=== PATIENT | male | born 1960 | race Caucasian/White ===

== ENCOUNTER 2017-10-13 08:01 | Outpatient (RCR) | payer OTHER ==
[~2017-10-13 08:01] MED LIST: FLOMAX 0.40.4 MG/CAP PO; TERBINAFINE250 MG PO
== END 2017-10-20 14:26 | disposition still patient (30) ==
LOC: WSOH 08:01
DX: M25.512 Pain in left shoulder (principal); S80.02XA Contusion of left knee, initial encounter; X50.0XXA Overexertion from strenuous movement or load, initial encounter; Y99.0 Civilian activity done for income or pay
CPT/HCPCS: J3301

== ENCOUNTER 2017-11-28 08:35 | Outpatient (RCR) | payer OTHER | END 2017-12-09 08:00 | disposition home or self-care (01) | LOC: WSPT 08:35 | DX: S80.02XA Contusion of left knee, initial encounter (principal); M25.512 Pain in left shoulder ==

== ENCOUNTER 2017-12-29 12:56 | Outpatient (RCR) | payer OTHER | END 2018-03-15 | disposition home or self-care (01) | LOC: WSOH | DX: M25.512 Pain in left shoulder (principal); S80.02XD Contusion of left knee, subsequent encounter; X50.0XXD Overexertion from strenuous movement or load, subsequent encounter; Y99.0 Civilian activity done for income or pay ==

== ENCOUNTER 2018-10-16 10:00 | Outpatient (RCR) | payer BC | END 2018-10-16 14:35 | disposition home or self-care (01) | LOC: WSPT 10:00 | DX: M17.12 Unilateral primary osteoarthritis, left knee (principal); M16.0 Bilateral primary osteoarthritis of hip; F17.210 Nicotine dependence, cigarettes, uncomplicated; Z79.899 Other long term (current) drug therapy ==